=== PATIENT | male | born 1985 | race Caucasian/White ===

== ENCOUNTER 2017-09-16 11:44 | Emergency (ER) | payer OTHER ==
[2017-09-16 11:49] VITALS: BP 150/94
[2017-09-16] MEDS ORDERED: TETRACAINE HCL 0.5% OPH SOLN 2 ML OD ONE (12:20)
[2017-09-16] MEDS ORDERED: POLYMYXIN B SULFATE/TMP OPH SOLN (10 ML/ER DISP) OD PRN (12:39)
[2017-09-16] MEDS ORDERED: KETOROLAC TROMETHAMINE 0.45% 4 DROP/0.4 ML DROPERETTE OD ONE (12:39)
[2017-09-16] MEDS ORDERED: ACETAMINOPHEN 325 MG TABLET PO ONE (12:41)
--- NOTE | 2017-09-16 12:42 | ER Document Report ---
HPI - HPI Patient complains to provider of: Poked in right eye Onset: Yesterday Pain Level: 5 Context: 32-year-old [employer] noncontact lens wear and a nephew accidentally poked him in the right eye yesterday. The eye is very painful and tearing a lot today. Associated Symptoms: None Exacerbated by: Denies Relieved by: Denies Similar symptoms previously: No Recently seen / treated by doctor: No - ROS ROS below otherwise negative: Yes Systems Reviewed and Negative: Yes All other systems reviewed and negative Past Medical History - General Information source: Patient - Social History Smoking Status: Unknown if Ever Smoked Frequency of alcohol use: None Drug Abuse: None Lives with: Spouse/Significant other Family History: Reviewed & Not Pertinent - Medical History Medical History: Negative Surgical Hx: Negative Vertical Provider Document - CONSTITUTIONAL Agree With Documented VS: Yes Exam Limitations: No Limitations - INFECTION CONTROL TRAVEL OUTSIDE OF THE [place] IN LAST 30 DAYS: No - HEENT HEENT: Conjuctival Injection Notes: PERRL, fluorescein uptake at 7:00 the right cornea superficial. - NECK Neck: Supple. negative: Lymphadenopathy-Left, Lymphadenopathy-Right - DERM Integumentary: No Rash Course - Vital Signs Vital signs: Temp Pulse Resp BP Pulse Ox 97.8 F 66 22 H 150/94 H 97 09/16/17 11:48 09/16/17 11:48 09/16/17 11:48 09/16/17 11:48 09/16/17 11:48 Discharge - Discharge Clinical Impression: Right corneal abrasion Condition: Good Disposition: HOME, SELF-CARE Instructions: Corneal Abrasion ([facility]) Additional Instructions: [place] This corneal abrasion should heal within 24 hours Acular or ketorolac pain eyedrop 1 every 8 hours in the right eye Polytrim antibiotic drops 1 drop every 8 hours in the right eye for 2-3 days to prevent infection to er any concerns Forms: Return to Work
== END 2017-09-16 12:51 | disposition home or self-care (01) ==
LOC: ER 11:44
DX: S05.01XA Injury of conjunctiva and corneal abrasion without foreign body, right eye, initial encounter (principal); H57.11 Ocular pain, right eye; W50.0XXA Accidental hit or strike by another person, initial encounter
CPT/HCPCS: 99283; J3490